=== PATIENT | female | born 1940 | race Caucasian/White ===

== ENCOUNTER 2019-01-30 10:10 | Emergency (ER) | payer BC, MEDICARE, OTHER ==
[~2019-01-30] VITALS: Ht 154.9 cm; Wt 52.2 kg
--- NOTE | 2019-01-30 10:10 | NUR ---
CAME IN FOR HEADACHE SINCE YESTERDAY MORNING . PT STATED "SAME FEELING WHEN I HAD THE STROKE LAST YEAR". TO ER BED 11, HOOKED TO MONITOR, CHANGED TO GOWN, PROVIDED W WARM BLANKET, AWAITING MD DUTTON
--- NOTE | 2019-01-30 10:26 | NUR ---
DR CONLEY AT BEDSIDE
[2019-01-30] MEDS ORDERED: IV NS 0.9% 1,000 ML BAG IV ONE ×2 (10:30→11:30)
[2019-01-30] MEDS ORDERED: diphenhydrAMINE HCL 50 MG/ML VIAL IV ONE (10:30)
[2019-01-30] MEDS ORDERED: DIAZ5TAB4 PO (10:35)
[2019-01-30] MEDS ORDERED: LOSA50TA39 PO (10:35)
[2019-01-30] MEDS ORDERED: CLOP75TA15 PO (10:35)
[2019-01-30] MEDS ORDERED: LATA2.5D7 OP (10:35)
[2019-01-30] MEDS ORDERED: RIBO100T6 PO (10:35)
[2019-01-30] MEDS ORDERED: ROSU10TA29 PO (10:35)
[2019-01-30] MEDS ORDERED: EMPA25TA PO (10:35)
[2019-01-30 10:51] LABS: BASOPHILS % (AUTO) 0.5 % (0.0-2.0); EOSINOPHILS % (AUTO) 0.4 % (0.0-6.0); HEMATOCRIT 40 % (33-45); HEMOGLOBIN 13.8 g/dL (11.5-14.8); LYMPHOCYTES # (AUTO) 0.8 /CMM (0.8-4.8); LYMPHOCYTES % (AUTO) 15.2 % (20.0-44.0); MEAN CORPUSCULAR HGB CONC 35 g/dl (31.0-36.0); MEAN CORPUSCULAR VOLUME 94 fL (82-100); MONOCYTES # (AUTO) 0.2 /CMM (0.1-1.30); MONOCYTES % (AUTO) 4.1 % (2.0-12.0); NEUTROPHILS # (AUTO) 4.1 /CMM (1.8-8.9); NEUTROPHILS % (AUTO) 79.8 % (43.0-81.0); PLATELET COUNT (AUTO) 174 /CMM (150-450); RED BLOOD CELL COUNT(AUTO) 4.21 MIL/uL (4.0-5.2); WHITE BLOOD COUNT (AUTO) 5.2 K/uL (4.3-11.0)
--- NOTE | 2019-01-30 10:51 | NUR ---
[employer] INTERN AT BEDSIDE
[2019-01-30] MEDS ORDERED: diphenhydrAMINE HCL 50 MG/ML VIAL ONE (10:52)
[2019-01-30 10:58] LABS: CALCIUM, SERUM 8.7 mg/dL (8.5-10.1); CARBON DIOXIDE 30 mmol/L (21-32); CHLORIDE 100 mmol/L (98-107); CREATININE 0.7 mg/dL (0.6-1.3); GLUCOSE 235 mg/dL (74-106); POTASSIUM 2.9 mmol/L (3.5-5.1); SODIUM SERUM 138 mmol/L (136-145); UREA NITROGEN, BLOOD 21 mg/dL (7-18)
--- NOTE | 2019-01-30 11:01 | NUR ---
PT WHEELED OUT VIA [employer] FOR CT SCAN
[2019-01-30 11:04] LABS: ALANINE AMINOTRANSFERASE 129 U/L (12-78); ALBUMIN 3.9 g/dL (3.4-5.0); ALKALINE PHOSPHATASE 124 U/L (46-116); ASPARTATE AMINOTRANSFERASE 123 U/L (15-37); BILIRUBIN,DIRECT 0.2 mg/dL (0.0-0.2); BILIRUBIN,TOTAL 0.7 mg/dL (0.2-1.0); TOTAL PROTEIN, SERUM 6.9 g/dL (6.4-8.2)
[2019-01-30] MEDS ORDERED: POTASSIUM CHLORIDE 20 MEQ TAB.PRT.SR PO ONE ×2 (11:30→11:31)
--- NOTE | 2019-01-30 12:30 | NUR ---
CALLED [facility] PAGED INDUSTRIAL TRACTOR DRIVER MACARIO ACOSTA
--- NOTE | 2019-01-30 12:31 | NUR ---
NURSING SUP AWARE OF TELE BED REQUEST
--- NOTE | 2019-01-30 13:00 | NUR ---
EPIC PAGED KARLA FOR ADMISSION
--- NOTE | 2019-01-30 13:52 | NUR ---
ASSIGNED [id number] TELE
--- NOTE | 2019-01-30 15:10 | NUR ---
REPORT GIVEN TO KAMILA BLACKMAN OF TELE UNIT
--- NOTE | 2019-01-30 15:50 | NUR ---
DR MACARIO ACOSTA AT BEDSIDE
--- NOTE | 2019-01-30 18:20 | NUR ---
IV removed. Catheter intact and site benign. Pressure and 4x4 applied to site. No bleeding noted.Patient discharged to home in stable condition. Written and verbal after care instructions given. Patient verbalizes understanding of instruction.
[2019-01-30 18:22] VITALS: BP 114/70
== END 2019-01-30 18:23 | disposition home or self-care (01) ==
LOC: ER 10:10 → TELE 14:08 → UNDOADMIN 14:08 → ER 18:23
DX: E11.65 Type 2 diabetes mellitus with hyperglycemia (principal); R51 Headache; E87.6 Hypokalemia; I10 Essential (primary) hypertension; R00.1 Bradycardia, unspecified; Z90.710 Acquired absence of both cervix and uterus; Z90.49 Acquired absence of other specified parts of digestive tract; Z90.89 Acquired absence of other organs; Z86.73 Personal history of transient ischemic attack (TIA), and cerebral infarction without residual deficits; Z88.5 Allergy status to narcotic agent
CPT/HCPCS: 36415; 70450; 71045; 80048; 80076; 82962; 85025; 87081; 93005; 96361; 96374; 99284; J1200; J7030 ×2

== ENCOUNTER 2019-01-30 16:20 | Outpatient (CLI) | payer OTHER ==
[~2019-01-30 16:20] MED LIST: CLOP75TA15 PO; DIAZ5TAB4 PO; EMPA25TA PO; LATA2.5D7 OP; LOSA50TA39 PO; RIBO100T6 PO; ROSU10TA29 PO
== END 2019-01-30 23:59 | disposition home or self-care (01) ==
LOC: MRI 16:20
PROVIDERS: ATTEND Nurse Practitioner Acute Care
DX: I67.82 Cerebral ischemia (principal)
CPT/HCPCS: 70551-TC

== ENCOUNTER 2023-06-29 15:27 | Emergency (ER) | payer BC, OTHER ==
[~2023-06-29] VITALS: Ht 154.9 cm; Wt 43.1 kg
[~2023-06-29 15:27] MED LIST changes: +LATA2.5D15 OP; -LATA2.5D7 OP
[2023-06-29] MEDS ORDERED: ACETAMINOPHEN ES 500 MG TABLET ONE (16:07)
[2023-06-29] MEDS ORDERED: ACETAMINOPHEN 325 MG TABLET PO ONE (16:30)
[2023-06-29] MEDS ORDERED: IV NS 0.9% 1,000 ML BAG IV ONE (16:30)
[2023-06-29 16:45] LABS: BASOPHILS % (AUTO) 0.7 % (0.0-2.0); EOSINOPHILS % (AUTO) 0.6 % (0.0-6.0); HEMATOCRIT 38 % (33-45); HEMOGLOBIN 12.9 g/dL (11.5-14.8); LYMPHOCYTES # (AUTO) 0.7 K/uL (0.8-4.8); LYMPHOCYTES % (AUTO) 17.7 % (20.0-44.0); MEAN CORPUSCULAR HEMOGLOBIN 33 PG (26.0-33.0); MEAN CORPUSCULAR HGB CONC 34 g/dl (31.0-36.0); MEAN CORPUSCULAR VOLUME 97 fL (82-100); MONOCYTES # (AUTO) 0.2 K/uL (0.1-1.30); MONOCYTES % (AUTO) 5.9 % (2.0-12.0); NEUTROPHILS % (AUTO) 75.1 % (43.0-81.0); PLATELET COUNT (AUTO) 140 K/uL (150-450); RED BLOOD CELL COUNT(AUTO) 3.94 MIL/uL (4.0-5.2); RED CELL DISTRIBUTION WIDTH 13.4 % (11.5-15.0)
[2023-06-29 17:15] LABS: ALANINE AMINOTRANSFERASE 115 U/L (12-78); ALBUMIN 3.4 g/dL (3.4-5.0); ALKALINE PHOSPHATASE 115 U/L (46-116); ASPARTATE AMINOTRANSFERASE 74 U/L (15-37); BILIRUBIN,DIRECT 0.1 mg/dL (0.0-0.2); BILIRUBIN,TOTAL 0.4 mg/dL (0.2-1.0); CALCIUM, SERUM 8.8 mg/dL (8.5-10.1); CREATININE 0.7 mg/dL (0.6-1.3); TOTAL PROTEIN, SERUM 6.4 g/dL (6.4-8.2); UREA NITROGEN, BLOOD 15 mg/dL (7-18)
[2023-06-29 17:36] LABS: POTASSIUM 3.5 mmol/L (3.5-5.1); SODIUM SERUM 139 mmol/L (136-145)
[2023-06-29 17:37] LABS: CARBON DIOXIDE 26 mmol/L (21-32); CHLORIDE 103 mmol/L (98-107)
[2023-06-29 17:38] LABS: GLUCOSE 401 mg/dL (74-106)
[2023-06-29] MEDS ORDERED: IOHEXOL-350 100 ML VIAL IV ONE (17:45)
[2023-06-29] MEDS ORDERED: IV NS 0.9% 250 ML IV ONE (17:46)
[2023-06-29] MEDS ORDERED: CT SWABBABLE VALVE TRANS SET 1 EA INFUS.SET MC ONE (17:46)
[2023-06-29 19:37] VITALS: BP 134/80; TEMP 98; O2SAT 99
== END 2023-06-29 19:38 | disposition home or self-care (01) ==
LOC: ER 15:52
DX: R51.9 Headache, unspecified (principal); I10 Essential (primary) hypertension; E11.9 Type 2 diabetes mellitus without complications; Z90.710 Acquired absence of both cervix and uterus; Z90.49 Acquired absence of other specified parts of digestive tract; Z90.89 Acquired absence of other organs; Z88.8 Allergy status to other drugs, medicaments and biological substances; Z79.899 Other long term (current) drug therapy
CPT/HCPCS: 99285; 70498; 96360; 71045; 93005; 70496; 85025; 80048; 80076; 36415; 84484; J7030; J7050; A4223; Q9967